=== PATIENT | female | born 1930 | race Caucasian/White ===

== ENCOUNTER 2016-04-18 11:51 | Inpatient (IN) | payer MEDICARE, BC ==
--- NOTE | 2016-04-18 12:49 | ERNOTE ---
Dyspnea - Date Date of Service: 04/18/16 - General Presenting Symptoms: shortness of breath Time Seen by Provider: 04/18/16 12:49 Source: family - Immun/Allergies/Home Medications Immunizations: IMMUNIZATION HX Immunizations Up to Date Yes History of Influenza Vaccine Yes Hx Pneumococcal Vaccination Yes Allergies/Adverse Reactions: Allergies Sulfa (Sulfonamide Antibiotics) Allergy (Verified 04/18/16 12:42) Home Medications: HOME MEDICATIONS Acetaminophen [Tylenol] 650 mg PO Q6H PRN 03/04/16 [Last Taken Unknown] Brimonidine Tartrate/Timolol [Combigan 0.2%-0.5% Eye Drops] 1 drop OP BID [Last Taken 03/04/16 06:00] Calcium Carbonate [Tums] 1,000 mg PO PRN PRN 03/04/16 [Last Taken Unknown] Citalopram Hydrobromide [Citalopram HBr] 20 mg PO DAILY 03/04/16 [Last Taken 06:00] Donepezil HCl [Aricept] 10 mg PO HS 03/04/16 [Last Taken 03/03/16] Eucalyptus Oil/Menthol/Camphor [Vicks Vaporub Ointment] 1 appl TP TID PRN [Last Taken Unknown] Furosemide [Lasix] 20 mg PO DAILY 03/04/16 [Last Taken 03/04/16 06:00] Glucosamine/D3/Boswellia Katie [Osteo Bi-Flex Caplet] 1 each PO DAILY 03/04/16 [ Last Taken 03/04/16 06:00] Levetiracetam 250 mg PO BID 03/04/16 [Last Taken 03/04/16 06:00] Lidocaine [Lidoderm 5%] 1 patch TP DAILY 03/04/16 [Last Taken 03/04/16 08:00] Lisinopril [Zestril] 20 mg PO DAILY 03/04/16 [Last Taken 03/04/16 06:00] Menthol [Biofreeze] 1 appl TP QID PRN 03/04/16 [Last Taken Unknown] Multivitamin [One Daily Essential] 1 each PO DAILY 03/04/16 [Last Taken 06:00] Neomycin Sauer/Bacitrac Zn/Poly [Triple Antibiotic Ointment] 1 each TP TID PRN [Last Taken Unknown] Phenol [Chloraseptic] 1 spray MM Q2H PRN 03/04/16 [Last Taken Unknown] diphenhydrAMINE HCL/ZINC ACET [Benadryl Cream] 1 appl TP QID PRN 03/04/16 [Last Taken Unknown] - History of Present Illness Narrative: pt was seeing a neurologist today and was noted to have a productive cough and looked "florian". Sent to the ed for further eval. Date (Duration): 04/17/16 - Pt was "fine" per family that played cards yest with her. Severity: moderate Treatment [employer]: by patient Initiating event: Reports: upper resp illness Modifying Factors (Worsens): Reports: activity, coughing Associated Symptoms-Dyspnea: Reports: cough. Denies: fever/chills, sweating, chest pain/discomfort, palpitations, lightheadedness Review of Systems - Narrative Narrative: pt has Alzheimers and is unable to give adequate hx - Review of Systems EYE: Present: no symptoms reported ENT: Present: no symptoms reported Respiratory: Present: cough. Absent: shortness of breath Cardiology: Present: no symptoms reported Gastrointestinal/Abdominal: Present: no symptoms reported Genitourinary: Present: no symptoms reported Musculoskeletal: Present: no symptoms reported Neurological: Present: no symptoms reported Endocrine: Present: no symptoms reported Hematologic/Lymphatic: Present: no symptoms reported - Patient's Past Medical History Patient History - Medical: Dementia, Depression, Osteoarthritis Patient History - Cardiac/Respiratory: CHF, Hypertension, Hyperlipidemia Patient History - Cancer: No Hx of Cancer Patient History - Surgical Procedures: Cholecystectomy LMP (females 10-50): Menopausal - Social History Living Situations: assisted living Does anyone smoke in the home?: No Smoking Status: Former smoker Smoking Stop Date: 04/18/96 Alcohol Use: none Drug Use: none Physical Exam - Physical Exam General Appearance: Present: alert, moderate distress - respiratory Eye Exam: Normal inspection: bilateral, PERRL: bilateral Ears, Nose, Throat: Present: normal ENT inspection Neck: Present: normal inspection Respiratory: Present: respiratory distress - mild, crackles - bilateral lower lobes, worse in the R, rhonchi Cardiovascular/Chest: Present: irregularly irregular Gastrointestinal/Abdominal: Present: normal bowel sounds Back Exam: Present: normal inspection Extremity Exam: Present: pedal edema - 1-2+ Neurological Exam: Present: alert Skin Exam: Present: normal color ED Progress - Results and Orders Patient's Lab Results:: I have reviewed the patient's lab results. - Vital Signs Patient's Vital Signs:: I have reviewed the patient's vital signs. Vital Signs: Vital Signs 04/18/16 12:34 Temperature 37.9 C H Pulse Rate 93 Respiratory 34 H Rate Blood Pressure 107/53 O2 Sat by Pulse 86 L Oximetry - EKG EKG: atrial fibrillation, other - mild RVR at 101bpm - X-Ray X-Ray #1 X-Ray: RLL consolidation - Progress/Reassessment Chief Complaint: Dyspnea Progress:: Improved Plan - Plan Plan: will admit to Dr. Paulino at 2:35 PM; will add zithromax Departure Clinical Impression: Pneumonia Qualifiers: Pneumonia type: due to unspecified organism Laterality: right Lung location: lower lobe of lung Qualified Code(s): J18.1 - Lobar pneumonia, unspecified organism - Departure Disposition: [facility] Condition: Stable Referrals: Nettie Spencer MD [Primary Care Provider] -
[2016-04-18 13:11] LABS: Hemoglobin 14.6 gm/dL (12.5-16.0); Mean Cell Volume 96.6 fl (78-100); Mean Corpuscular Hemoglobin 31.3 pg (27-31); Mean Corpuscular Hgb Conc 32.4 g/dl (32-36); Mean Platelet Volume 10.1 fl (6.0-9.5); Neutrophil # 11.9 K/mm3 (1.3-6.0); Neutrophil % 88.9 % (42-75.0); Platelet Count 195 K/mm3 (150-450); Red Blood Count 4.66 M/mm3 (4.2-5.4); Red Cell Distribution Width 13.2 % (11.5-14.0); White Blood Count 13.4 K/mm3 (4.0-10.5)
[2016-04-18 13:29] LABS: Albumin * 3.4 gm/dl (3.4-5.0); Anion Gap 12.1 mmol/L (6.8-13.8); BUN/Creatinine Ratio 11.2 (9.0-21.6); Bilirubin, Total 0.9 mg/dL (0.0-1.1); Ca. Corrected For Albumin 9.4 mg/dL (8.4-10.2); Calcium * 9.2 mg/dL (7.9-10.9); Carbon Dioxide 30.3 mmol/L (24-32.6); Potassium 3.4 mmol/L (3.4-4.6); Total Protein 7.1 gm/dL (6.2-8.2)
[2016-04-18] MEDS ORDERED: AZITHROMYCIN 500 MG in DEXTROSE 5 % IN WATER 250 ML IV ONE ×2 (14:45)
[2016-04-18] MEDS ORDERED: ACETAMINOPHEN 325 MG TABLET PO PRN (15:24)
--- NOTE | 2016-04-18 15:58 | HP ---
Chief Complaint - Chief Complaint Date of Service: 04/18/16 Time of Service: 15:32 Chief Complaint: Cough, Dyspnea History of Present Illness: 85 years old female pleasantly confused at her baseline per family, she is adm through the ER from her Neurologist office. PMH hypertension, CHF, A-fib, hyperlipidemia, dementia, depression and compression fracture. per family while at her neurologist appt today he notices pt had a cough, wheezing and dyspnea. He requested family to take pt to the ER. In ER CXR: Right lower lobe pneumonia and febrile. WBC 13.4 Bun/cre 12/1.07 within baseline. Daughter (POA) stated pt was praying to , son second POA confirm and stated they wishes for pt to be DNR. - Narrative Narrative: Information obtained from previous records and family. - Patient's Past Medical History Patient History - Medical: Dementia, Depression, Osteoarthritis, Renal Failure, Seizures Patient History - Cardiac/Respiratory: Atrial Fibrillation, CHF, Hypertension, Hyperlipidemia Patient History - Cancer: No Hx of Cancer Patient History - Surgical Procedures: Cholecystectomy, Other - Rotator cuff repair LMP (females 10-50): Menopausal - Family History Sister Family History - Cardiac/Respiratory: Hypertension - Social History Living Situations: assisted living - [place] Does anyone smoke in the home?: No Smoking Status: Former smoker Smoking Stop Date: 04/18/96 Alcohol Use: none Drug Use: none Review Of Systems (GEN) - Review of Systems Generalized/Overall Review: Present: Fever Respiratory: Present: Cough, Shortness of Breath, Wheezing Cardiac: Present: No Symptoms Reported Abdominal: Present: No Symptoms Reported Genitourinary: Present: No Symptoms Reported Musculoskeletal: Present: Joint Pain Neurological: Present: No Symptoms Reported Skin: Present: No Symptoms Reported Allergies/Adverse Reactions: Allergies Allergy/AdvReac Type Severity Reaction Status Date / Time Sulfa (Sulfonamide Allergy Verified 04/18/16 16:07 Antibiotics) Home Medications: HOME MEDICATIONS Acetaminophen [Tylenol] 650 mg PO Q6H PRN 03/04/16 [Last Taken Unknown] Brimonidine Tartrate/Timolol [Combigan 0.2%-0.5% Eye Drops] 1 drop OP BID [Last Taken 03/04/16 06:00] Calcium Carbonate [Tums] 1,000 mg PO PRN PRN 03/04/16 [Last Taken Unknown] Citalopram Hydrobromide [Citalopram HBr] 20 mg PO DAILY 03/04/16 [Last Taken 06:00] Donepezil HCl [Aricept] 10 mg PO HS 03/04/16 [Last Taken 03/03/16] Eucalyptus Oil/Menthol/Camphor [Vicks Vaporub Ointment] 1 appl TP TID PRN [Last Taken Unknown] Furosemide [Lasix] 20 mg PO DAILY 03/04/16 [Last Taken 03/04/16 06:00] Glucosamine/D3/Boswellia Katie [Osteo Bi-Flex Caplet] 1 each PO DAILY 03/04/16 [ Last Taken 03/04/16 06:00] Levetiracetam 250 mg PO BID 03/04/16 [Last Taken 03/04/16 06:00] Lidocaine [Lidoderm 5%] 1 patch TP DAILY 03/04/16 [Last Taken 03/04/16 08:00] Lisinopril [Zestril] 20 mg PO DAILY 03/04/16 [Last Taken 03/04/16 06:00] Menthol [Biofreeze] 1 appl TP QID PRN 03/04/16 [Last Taken Unknown] Multivitamin [One Daily Essential] 1 each PO DAILY 03/04/16 [Last Taken 06:00] Neomycin Sauer/Bacitrac Zn/Poly [Triple Antibiotic Ointment] 1 each TP TID PRN [Last Taken Unknown] Phenol [Chloraseptic] 1 spray MM Q2H PRN 03/04/16 [Last Taken Unknown] diphenhydrAMINE HCL/ZINC ACET [Benadryl Cream] 1 appl TP QID PRN 03/04/16 [Last Taken Unknown] Exam - Exam Vital Signs: Vital Signs - Last Taken Temp 38.1 C H 04/18/16 15:06 Pulse 88 04/18/16 15:06 Resp 34 H 04/18/16 15:06 BP 174/78 04/18/16 15:06 Pulse Ox 93 04/18/16 15:06 Constitutional: Present: Cooperative, Elderly ENT Exam: Present: moist mucous membranes Eye Exam: bilateral eye: PERRL Breasts: Present: Exam deferred Respiratory: Present: decreased breath sounds, crackles, rhonchi Cardiovascular/Chest: Present: normal peripheral pulses, no chest tenderness, irregularly irregular, other - BLE edema Peripheral Pulses: dorsalis-pedis (R): 2+, dorsalis-pedis (L): 2+ Abdomen: Present: Normal bowel sounds, soft, nontender, nondistended /Rectal: Present: Exam deferred Extremity: Present: normal inspection, lower extremity edema, pedal edema Skin Exam: Present: normal color, warm/dry, no cyanosis Neurologic: Present: disoriented x 3 Eye contact: Present: normal speech Thoughts: Present: no apparent hallucination Diagnostic Studies: Laboratory Results WBC 13.4 K/mm3 (4.0-10.5) H 04/18/16 13:00 RBC 4.66 M/mm3 (4.2-5.4) 04/18/16 13:00 Hgb 14.6 gm/dL (12.5-16.0) 04/18/16 13:00 Hct 45.0 % (37.0-47.0) 04/18/16 13:00 MCV 96.6 fl (78-100) 04/18/16 13:00 MCH 31.3 pg (27-31) H 04/18/16 13:00 MCHC 32.4 g/dl (32-36) 04/18/16 13:00 RDW 13.2 % (11.5-14.0) 04/18/16 13:00 Plt Count 195 K/mm3 (150-450) 04/18/16 13:00 MPV 10.1 fl (6.0-9.5) H 04/18/16 13:00 Immature Gran % (Auto) 0.30 % (0.001-0.429) 04/18/16 13:00 Immature Gran # (Auto) 0.04 K/mm3 (0.000-0.0310) H 04/18/16 13:00 Neutrophils % 88.9 % (42-75.0) H 04/18/16 13:00 Lymphocytes % 5.4 % (20-51) L 04/18/16 13:00 Monocytes % 5.0 % (0.0-9) 04/18/16 13:00 Eosinophils % 0.1 % (0.0-3.0) 04/18/16 13:00 Basophils % 0.3 % (0.0-1.0) 04/18/16 13:00 Nucleated RBC % 0.0 k/mm3 (0-1) 04/18/16 13:00 Neutrophils # 11.9 K/mm3 (1.3-6.0) H 04/18/16 13:00 Lymphocytes # 0.7 k/mm3 (1.5-3.5) L 04/18/16 13:00 Monocytes # 0.7 k/mm3 (0.0-1.0) 04/18/16 13:00 Eosinophils # 0.0 k/mm3 (0.0-0.7) 04/18/16 13:00 Absolute Basophils 0.0 k/mm3 (0.0-0.1) 04/18/16 13:00 Sodium 143 mmol/L (132-142) H 04/18/16 13:00 Plasma Sodium 144 mmol/L (130-142) H 04/18/16 13:00 Potassium 3.4 mmol/L (3.4-4.6) 04/18/16 13:00 Chloride 104 mmol/L (97-106) 04/18/16 13:00 Carbon Dioxide 30.3 mmol/L (24-32.6) 04/18/16 13:00 Anion Gap 12.1 mmol/L (6.8-13.8) 04/18/16 13:00 BUN 12 mg/dL (3-23) 04/18/16 13:00 Creatinine 1.07 mg/dL (0.4-1.4) 04/18/16 13:00 Est GFR (Non-Af Amer) 52 mL/min (60-130) L 04/18/16 13:00 BUN/Creatinine Ratio 11.2 (9.0-21.6) 04/18/16 13:00 Random Glucose 137 mg/dL (70-110) H 04/18/16 13:00 Calcium 9.2 mg/dL (7.9-10.9) 04/18/16 13:00 Calcium Adj for Albumin 9.4 mg/dL (8.4-10.2) 04/18/16 13:00 Total Bilirubin 0.9 mg/dL (0.0-1.1) 04/18/16 13:00 AST 24 U/L (0-48) 04/18/16 13:00 ALT 29 U/L (19-67) 04/18/16 13:00 Alkaline Phosphatase 87 U/L (50-170) 04/18/16 13:00 B-Natriuretic Peptide 4621 pg/mL (5-550) H 04/18/16 13:00 Total Protein 7.1 gm/dL (6.2-8.2) 04/18/16 13:00 Albumin 3.4 gm/dl (3.4-5.0) 04/18/16 13:00 04/18/16 CXR: Right Lower lobe pneumonia Assessment/Plan - Narrative Narrative: Pneumonia Pt a resident of [facility].On adm CXR : Right lower lobe pneumonia Continue with Rocephin and Azithromycin daily Sputum culture, blood culture and urinalysis pending. Lactic acid to be obtain if was not done in ER. On adm WBC 13.4 Temp 37.9---->38.1----> continue to monitor Tylenol 650mg Q6 PRN monitor CBC in am Encourage use of I/S and ambulate daily. On adm Spo2 86% on RA---> supplemented oxygen and wean Dementia- currently at baseline per family Supportive care Continue with home dose of medications CHF ? Continue with home dose Lasix BLE pitting edema no JVD BNP 4621 on adm wolf 60.7kg ---->Weight daily and strict I/O Hypertension On adm BP 196/88--->174/78-----> Give Lasix 40mg IV x1 now Resume home dose of medications Monitor vital signs Hypernatremia On adm Na+ 143 continue to monitor Low sodium diet Chronic A-Fib EKG A-fib mild RVR 101 BPM Monitor while on tele Chronic dementia and potential for increased risk to falls not a candidate for anticoag Seizure Continue with home dose Keppra Safety measures pad side rails. VTE ppx Haparin SQ Code Status: DNR - Assessment/Plan (1) Pneumonia Problem: Acute Qualifiers: Pneumonia type: due to unspecified organism Laterality: right Lung location: lower lobe of lung Qualified Code(s): J18.1 - Lobar pneumonia, unspecified organism (2) Hypernatremia Problem: Chronic (3) Leukocytosis, unspecified Problem: Acute (4) Congestive heart failure (CHF) Problem: Chronic Qualifiers: Congestive heart failure type: unspecified congestive heart failure type (5) Dementia Problem: Chronic (6) Hypertension Problem: Chronic Qualifiers: Hypertension type: essential hypertension Qualified Code(s): I10 - Essential (primary) hypertension (7) A-fib Problem: Chronic Qualifiers: Atrial fibrillation type: unspecified Qualified Code(s): I48.91 - Unspecified atrial fibrillation (8) Seizure Problem: Chronic
[2016-04-18] MEDS: HEPARIN SODIUM,PORCINE 5,000 UNITS/ML VIAL SC SCH (15:59)
[2016-04-18] MEDS ORDERED: FUROSEMIDE 10 MG/ML VIAL IV ONE (16:38)
[2016-04-18] MEDS ORDERED: POTASSIUM CHLORIDE 20 MEQ TABLET.SA PO ONE (16:39)
[2016-04-18] MEDS ORDERED: NON-FORMULARY 1 DOSE DOSE (Menthol [Biofreeze] 1 APPL) TP PRN (16:39)
[2016-04-18] MEDS ORDERED: CALCIUM CARBONATE 500 MG TAB.CHEW PO PRN (16:39)
[2016-04-18] MEDS: DONEPEZIL HCL 10 MG TABLET PO SCH (22:21)
[2016-04-18] MEDS: levETIRAcetam 500 MG TABLET PO SCH (22:21)
[2016-04-18] MEDS: TIMOLOL MALEATE/DORZOLAM HCL 100 DROP BTL OP SCH (22:40)
[2016-04-18] MEDS: REMOVE PATCH 1 PATCH PATCH TP SCH (22:41)
[2016-04-18 23:06] LABS: Urine Bilirubin Negative (NEGATIVE); Urine Ketone Negative (NEGATIVE); Urine Nitrite Negative (NEGATIVE); Urine Protein Negative (NEGATIVE); Urine Urobilinogen Normal (NORMAL)
[2016-04-18 23:11] LABS: Urine Appearance Turbid; Urine Bacteria 1+; Urine Blood 250 /ul (NEGATIVE); Urine Color Yellow; Urine WBC >50 /hpf (0-5)
[2016-04-18 23:12] LABS: Urine Hyaline Cast 0-5 /LPF; Urine Renal Epithelial Cell Few - 1+ /hpf
[2016-04-19] MEDS: HEPARIN SODIUM,PORCINE 5,000 UNITS/ML VIAL SC SCH ×2 (03:37→17:08)
[2016-04-19 05:39] LABS: Hemoglobin 12.5 gm/dL (12.5-16.0); Mean Cell Volume 96.8 fl (78-100); Mean Corpuscular Hgb Conc 32.1 g/dl (32-36); Mean Platelet Volume 10.6 fl (6.0-9.5); Neutrophil # 13.5 K/mm3 (1.3-6.0); Platelet Count 167 K/mm3 (150-450); Red Blood Count 4.03 M/mm3 (4.2-5.4); Red Cell Distribution Width 13.2 % (11.5-14.0); White Blood Count 16.4 K/mm3 (4.0-10.5)
[2016-04-19 06:10] LABS: Anion Gap 11.1 mmol/L (6.8-13.8); BUN/Creatinine Ratio 13.6 (9.0-21.6); Calcium * 8.8 mg/dL (7.9-10.9); Carbon Dioxide 30.2 mmol/L (24-32.6); Estimated Creat Clear 21.2; Potassium 3.3 mmol/L (3.4-4.6)
[2016-04-19] MEDS ORDERED: POTASSIUM CHLORIDE 20 MEQ TABLET.SA PO ONE (07:30)
--- NOTE | 2016-04-19 08:39 | PN ---
Subjective - Date and Time Seen Date: 04/19/16 Time: 08:13 Subjective Narrative: patient seen today no acute distress sitting up in chair. pt stated she have no appetite and is sad that her . She report mild SOB with exertion, productive cough with small amount of sputum. Objective - Review of Systems Generalized/Overall Review: Reports: No Symptoms Reported Respiratory: Reports: Cough, Shortness of Breath Cardiac: Reports: No Symptoms Reported Abdominal: Reports: No Symptoms Reported Genitourinary Symptoms: Reports: No Symptoms Reported Musculoskeletal Complaints: Reports: No Symptoms Reported Neurological: Reports: No Symptoms Reported Skin: Reports: No Symptoms Reported Endocrine: Reports: No Symptoms Reported - Vitals Vitals: Last Vital Signs Temp 36.7 C 04/19/16 06:44 Pulse 78 04/19/16 06:44 Resp 18 04/19/16 06:44 BP 159/72 04/19/16 06:44 Pulse Ox 94 04/19/16 06:44 - Abnormal Lab Findings Abnormal Lab Findings: Abnormal Lab Results 04/18/16 04/19/16 04/19/16 Range/Units 22:45 05:14 05:14 WBC 16.4 H D (4.0-10.5) K/mm3 RBC 4.03 L (4.2-5.4) M/mm3 MPV 10.6 H (6.0-9.5) fl Immature Gran % (Auto) 0.50 H (0.001-0.429) % Immature Gran # (Auto) 0.08 H (0.000-0.0310) K/mm3 Neutrophils % 82.0 H (42-75.0) % Lymphocytes % 10.6 L (20-51) % Neutrophils # 13.5 H (1.3-6.0) K/mm3 Monocytes # 1.1 H (0.0-1.0) k/mm3 Sodium 144 H (132-142) mmol/L Plasma Sodium 144 H (130-142) mmol/L Potassium 3.3 L (3.4-4.6) mmol/L Est GFR (Non-Af Amer) 54 L (60-130) mL/min Random Glucose 116 H (70-110) mg/dL B-Natriuretic Peptide 98699 H (5-550) pg/mL Urine Blood 250 H (NEGATIVE) /ul Ur Leukocyte Esterase 500 H (NEGATIVE) /ul Urine RBC 5-10 H (0-5) /hpf Urine WBC >50 H (0-5) /hpf Ur Renal Epithelial Cell Few - 1+ H (NONE) /hpf Urine Bacteria 1+ H (NONE) Hyaline Casts 0-5 H (NONE) /LPF - EKG/Xray Findings EKG: atrial fibrillation - Exam Constitutional: Present: Cooperative, Elderly ENT Exam: Present: moist mucous membranes Neck: Present: full range of motion Breasts: Present: Exam deferred Respiratory: Present: decreased breath sounds, rhonchi, wheezing Cardiovascular/Chest: Present: no JVD, irregularly irregular, other - BLE pitting edema Abdomen: Present: Normal bowel sounds, soft, nontender, nondistended, no rebound tenderness /Rectal: Present: Exam deferred Extremity: Present: normal inspection, lower extremity edema, slow capillary refill Skin Exam: Present: normal color, warm/dry, no cyanosis Neurologic: Present: disoriented x 3 Appearance: Present: impaired insight Eye contact: Present: cooperative Thoughts: Present: no apparent hallucination Assessment/Plan Plan Narrative: Pneumonia Pt a resident of [facility].On adm CXR : Right lower lobe pneumonia Continue with Rocephin and Azithromycin daily Sputum culture pending Lactic acid -WNL On adm WBC 13.4 --->16.4 gradual spike 04/18/16 On adm Temp 37.9---->38.1----> pt has been afebril since 15:34 yesterday Tylenol 650mg Q6 PRN monitor CBC in am Encourage use of I/S and ambulate daily, due to dementia pt is not able to follow instruction in using I/S On adm Spo2 86% on RA---> supplemented oxygen and wean----> today Spo2 94% room air. Dementia- currently at baseline per family Supportive care Continue with home dose of medications CHF ? Continue with home dose Lasix BLE pitting edema no JVD BNP 4621---->83924----> on adm weight 60.7kg ----> 60.7 Weight daily and strict I/O 2D echo pending Low sodium diet nutritional supplement with meals. Hypertension On adm BP 196/88--->174/78-----> improved after Lasix was given. Today BP 159/72 Switch Oral Lasix 20mg daily to Lasix 40mg Resume home dose of medications Monitor vital signs Hypernatremia- On adm Na+ 143---->144 continue to monitor Low sodium diet Chronic A-Fib On adm EKG A-fib mild RVR 101 BPM Monitor while on tele----> pt remain Afib rate control Chronic dementia and potential for increased risk to falls not a candidate for anticoag Seizure Continue with home dose Keppra Safety measures pad side rails. Hypokalemia- supplemented VTE ppx Haparin SQ Code Status: DNR - Problems/Diagnosis (1) Pneumonia Problem: Acute Qualifiers: Pneumonia type: due to unspecified organism Laterality: right Lung location: lower lobe of lung Qualified Code(s): J18.1 - Lobar pneumonia, unspecified organism (2) Hypernatremia Problem: Chronic (3) Leukocytosis, unspecified Problem: Acute (4) Congestive heart failure (CHF) Problem: Chronic Qualifiers: Congestive heart failure type: unspecified congestive heart failure type (5) Dementia Problem: Chronic (6) Hypertension Problem: Chronic Qualifiers: Hypertension type: essential hypertension Qualified Code(s): I10 - Essential (primary) hypertension (7) A-fib Problem: Chronic Qualifiers: Atrial fibrillation type: unspecified Qualified Code(s): I48.91 - Unspecified atrial fibrillation (8) Seizure Problem: Chronic
[2016-04-19] MEDS ORDERED: FUROSEMIDE 20 MG TABLET PO SCH (09:00)
[2016-04-19] MEDS: LIDOCAINE 1 PATCH ADH..PATCH TP SCH (09:09)
[2016-04-19] MEDS: FUROSEMIDE 10 MG/ML VIAL IV SCH (09:10)
[2016-04-19] MEDS: POTASSIUM CHLORIDE 20 MEQ TABLET.SA PO SCH (09:11)
[2016-04-19] MEDS: CITALOPRAM HYDROBROMIDE 20 MG TABLET PO SCH (09:11)
[2016-04-19] MEDS: TIMOLOL MALEATE/DORZOLAM HCL 100 DROP BTL OP SCH ×2 (09:12→21:52)
[2016-04-19] MEDS: MULTIVITAMINS 1 CAP CAPSULE PO SCH (09:12)
[2016-04-19] MEDS: LISINOPRIL 20 MG TABLET PO SCH (09:12)
[2016-04-19] MEDS: levETIRAcetam 500 MG TABLET PO SCH ×2 (09:13→21:56)
[2016-04-19] MEDS: NON-FORMULARY 1 DOSE DOSE (Glucosamine/D3/Boswellia Serra [Osteo Bi-Flex Caplet] 1 EACH) PO SCH (09:14)
[2016-04-19] MEDS ORDERED: AZITHROMYCIN 500 MG in DEXTROSE 5 % IN WATER 250 ML IV SCH ×2 (14:45)
[2016-04-19] MEDS: ALPRAZolam 0.5 MG TABLET PO PRN ×2 (15:38→21:56)
[2016-04-19] MEDS: DONEPEZIL HCL 10 MG TABLET PO SCH (21:51)
[2016-04-19] MEDS: REMOVE PATCH 1 PATCH PATCH TP SCH (21:57)
[2016-04-20] MEDS: HEPARIN SODIUM,PORCINE 5,000 UNITS/ML VIAL SC SCH ×2 (02:43→15:07)
[2016-04-20 06:27] LABS: Hematocrit 39.8 % (37.0-47.0); Hemoglobin 12.4 gm/dL (12.5-16.0); Mean Cell Volume 99.3 fl (78-100); Mean Corpuscular Hemoglobin 30.9 pg (27-31); Mean Corpuscular Hgb Conc 31.2 g/dl (32-36); Mean Platelet Volume 11.3 fl (6.0-9.5); Neutrophil # 11.4 K/mm3 (1.3-6.0); Neutrophil % 82.1 % (42-75.0); Platelet Count 168 K/mm3 (150-450); Red Blood Count 4.01 M/mm3 (4.2-5.4); Red Cell Distribution Width 13.2 % (11.5-14.0); White Blood Count 13.8 K/mm3 (4.0-10.5)
[2016-04-20 07:00] LABS: BUN/Creatinine Ratio 15.8 (9.0-21.6); Carbon Dioxide 35.1 mmol/L (24-32.6); Potassium 4.1 mmol/L (3.4-4.6)
[2016-04-20] MEDS: LISINOPRIL 20 MG TABLET PO SCH (08:31)
[2016-04-20] MEDS: LIDOCAINE 1 PATCH ADH..PATCH TP SCH (08:31)
[2016-04-20] MEDS: MULTIVITAMINS 1 CAP CAPSULE PO SCH (08:31)
[2016-04-20] MEDS: TIMOLOL MALEATE/DORZOLAM HCL 100 DROP BTL OP SCH ×2 (08:31→20:30)
[2016-04-20] MEDS: POTASSIUM CHLORIDE 20 MEQ TABLET.SA PO SCH (08:31)
[2016-04-20] MEDS: CITALOPRAM HYDROBROMIDE 20 MG TABLET PO SCH (08:32)
[2016-04-20] MEDS: NON-FORMULARY 1 DOSE DOSE (Glucosamine/D3/Boswellia Serra [Osteo Bi-Flex Caplet] 1 EACH) PO SCH (08:32)
[2016-04-20] MEDS: FUROSEMIDE 10 MG/ML VIAL IV SCH (08:33)
[2016-04-20] MEDS: levETIRAcetam 500 MG TABLET PO SCH ×2 (08:57→20:30)
[2016-04-20] MEDS ORDERED: NORMAL SALINE 500 ML IV ONE (15:27)
[2016-04-20] MEDS: DONEPEZIL HCL 10 MG TABLET PO SCH (20:31)
[2016-04-20] MEDS: REMOVE PATCH 1 PATCH PATCH TP SCH (20:31)
--- NOTE | 2016-04-20 23:47 | PN ---
Subjective - Date and Time Seen Date: 04/21/16 Time: 10:30 Subjective Narrative: Reports no concerns. Had bites with breakfast per nursing. Denies shortness of breath, fever, chills. Objective - Vitals Vitals: Last Vital Signs Temp 36.6 C 04/20/16 23:38 Pulse 80 04/20/16 23:38 Resp 16 04/20/16 23:38 BP 132/72 04/20/16 23:38 Pulse Ox 87 L 04/20/16 23:38 - Abnormal Lab Findings Abnormal Lab Findings: Abnormal Lab Results 04/20/16 04/20/16 Range/Units 05:30 05:30 WBC 13.8 H (4.0-10.5) K/mm3 RBC 4.01 L (4.2-5.4) M/mm3 Hgb 12.4 L (12.5-16.0) gm/dL MCHC 31.2 L (32-36) g/dl MPV 11.3 H (6.0-9.5) fl Immature Gran # (Auto) 0.04 H (0.000-0.0310) K/mm3 Neutrophils % 82.1 H (42-75.0) % Lymphocytes % 11.2 L (20-51) % Neutrophils # 11.4 H (1.3-6.0) K/mm3 Sodium 144 H (132-142) mmol/L Plasma Sodium 144 H (130-142) mmol/L Carbon Dioxide 35.1 H (24-32.6) mmol/L Est GFR (Non-Af Amer) 59 L (60-130) mL/min B-Natriuretic Peptide 76028 H (5-550) pg/mL - Exam Constitutional: Present: Alert, Oriented x3, Cooperative Respiratory: Present: decreased breath sounds - right base Cardiovascular/Chest: Present: regular rate, rhythm, no edema Abdomen: Present: Normal bowel sounds, soft, nontender, nondistended Skin Exam: Present: normal color, warm/dry, no cyanosis Appearance: Present: appropriate appearance, appropriate insight Assessment/Plan - Problems/Diagnosis (1) Pneumonia Problem: Acute Qualifiers: Pneumonia type: due to unspecified organism Laterality: right Lung location: lower lobe of lung Qualified Code(s): J18.1 - Lobar pneumonia, unspecified organism Narrative: Encouraged incentive spirometer and cornet. Continue antibiotics. Will add ensure between meals for additional nutrition. Anticipate discharge in 2-3 days.
[2016-04-21] MEDS: HEPARIN SODIUM,PORCINE 5,000 UNITS/ML VIAL SC SCH ×2 (02:31→15:00)
[2016-04-21 06:18] LABS: Anion Gap 11.3 mmol/L (6.8-13.8); BUN/Creatinine Ratio 19.4 (9.0-21.6); Calcium * 8.9 mg/dL (7.9-10.9); Carbon Dioxide 30.7 mmol/L (24-32.6); Estimated Creat Clear 23.5
[2016-04-21] MEDS: CITALOPRAM HYDROBROMIDE 20 MG TABLET PO SCH (09:24)
[2016-04-21] MEDS: LISINOPRIL 20 MG TABLET PO SCH (09:25)
[2016-04-21] MEDS: POTASSIUM CHLORIDE 20 MEQ TABLET.SA PO SCH (09:25)
[2016-04-21] MEDS: MULTIVITAMINS 1 CAP CAPSULE PO SCH (09:25)
[2016-04-21] MEDS: levETIRAcetam 500 MG TABLET PO SCH ×2 (09:25→21:09)
[2016-04-21] MEDS: NON-FORMULARY 1 DOSE DOSE (Glucosamine/D3/Boswellia Serra [Osteo Bi-Flex Caplet] 1 EACH) PO SCH (09:25)
[2016-04-21] MEDS: TIMOLOL MALEATE/DORZOLAM HCL 100 DROP BTL OP SCH ×2 (09:26→21:09)
[2016-04-21] MEDS: LIDOCAINE 1 PATCH ADH..PATCH TP SCH (09:28)
[2016-04-21 13:39] LABS: Hematocrit 40.3 % (37.0-47.0); Hemoglobin 12.4 gm/dL (12.5-16.0); Mean Cell Volume 100.2 fl (78-100); Mean Corpuscular Hemoglobin 30.8 pg (27-31); Mean Corpuscular Hgb Conc 30.8 g/dl (32-36); Mean Platelet Volume 11.6 fl (6.0-9.5); Neutrophil # 5.9 K/mm3 (1.3-6.0); Platelet Count 175 K/mm3 (150-450); Red Blood Count 4.02 M/mm3 (4.2-5.4); Red Cell Distribution Width 13.3 % (11.5-14.0); White Blood Count 7.7 K/mm3 (4.0-10.5)
[2016-04-21] MEDS: REMOVE PATCH 1 PATCH PATCH TP SCH (21:10)
[2016-04-21] MEDS: DONEPEZIL HCL 10 MG TABLET PO SCH (21:10)
--- NOTE | 2016-04-21 23:42 | PN ---
Subjective - Date and Time Seen Date: 04/21/16 Time: 11:25 Subjective Narrative: Tonya reports left rib pain with movement, cough. Otherwise she says she feels fine. No concerns from nursing. Objective - Vitals Vitals: Last Vital Signs Temp 36.6 C 04/21/16 22:21 Pulse 93 04/21/16 22:21 Resp 16 04/21/16 22:21 BP 162/74 04/21/16 23:20 Pulse Ox 95 04/21/16 22:21 - Abnormal Lab Findings Abnormal Lab Findings: Abnormal Lab Results 04/21/16 04/21/16 Range/Units 05:45 05:45 RBC 4.02 L (4.2-5.4) M/mm3 Hgb 12.4 L (12.5-16.0) gm/dL MCV 100.2 H (78-100) fl MCHC 30.8 L (32-36) g/dl MPV 11.6 H (6.0-9.5) fl Neutrophils % 76.0 H (42-75.0) % Lymphocytes % 14.5 L (20-51) % Lymphocytes # 1.1 L (1.5-3.5) k/mm3 Sodium 144 H (132-142) mmol/L Plasma Sodium 144 H (130-142) mmol/L - Exam Constitutional: Present: Alert, Oriented x3, Cooperative ENT Exam: Present: hard of hearing Respiratory: Present: decreased breath sounds - Right base Cardiovascular/Chest: Present: regular rate, rhythm, systolic murmur - 2+, other - tender left 4th/5th ribs on lateral wall Abdomen: Present: Normal bowel sounds, soft, nontender, nondistended Extremity: Present: no pedal edema, normal capillary refill Skin Exam: Present: normal color, warm/dry, no cyanosis Assessment/Plan - Problems/Diagnosis (1) Pneumonia Problem: Acute Qualifiers: Pneumonia type: due to unspecified organism Laterality: right Lung location: lower lobe of lung Qualified Code(s): J18.1 - Lobar pneumonia, unspecified organism Narrative: Clinically doing well. No hypoxia. Watching closely as patient has dementia history. Will repeat chest xray and rib xray today due to rib pain to evaluate for potential fracture due to coughing with osteoporosis. If she continues to do well clinically from the pneumonia may be able to be discharged tomorrow.
[2016-04-22] MEDS: HEPARIN SODIUM,PORCINE 5,000 UNITS/ML VIAL SC SCH (02:52)
[2016-04-22 06:35] LABS: Anion Gap 10.6 mmol/L (6.8-13.8); BUN/Creatinine Ratio 21.7 (9.0-21.6); Carbon Dioxide 32.7 mmol/L (24-32.6); Estimated Creat Clear 26.3; Potassium 4.3 mmol/L (3.4-4.6)
[2016-04-22] MEDS: TIMOLOL MALEATE/DORZOLAM HCL 100 DROP BTL OP SCH (08:34)
[2016-04-22] MEDS: MULTIVITAMINS 1 CAP CAPSULE PO SCH (08:34)
[2016-04-22] MEDS: levETIRAcetam 500 MG TABLET PO SCH (08:34)
[2016-04-22] MEDS: NON-FORMULARY 1 DOSE DOSE (Glucosamine/D3/Boswellia Serra [Osteo Bi-Flex Caplet] 1 EACH) PO SCH (08:35)
[2016-04-22] MEDS: CITALOPRAM HYDROBROMIDE 20 MG TABLET PO SCH (08:35)
[2016-04-22] MEDS: POTASSIUM CHLORIDE 20 MEQ TABLET.SA PO SCH (08:35)
[2016-04-22] MEDS: LISINOPRIL 20 MG TABLET PO SCH (08:35)
[2016-04-22] MEDS: LIDOCAINE 1 PATCH ADH..PATCH TP SCH (08:50)
[2016-04-22 10:17] VITALS: BP 184/83
--- NOTE | 2016-04-22 10:20 | DS ---
(1) Pneumonia Diagnosis(s): Right lower lobe health care associated pneumonia with residence in dementia unit at [facility]. Treated with rocephin and azithromycin. She clinically did well without hypoxia or significant dyspnea. She did have left rib pain. An xray was done which did not show a fracture, suspect costochondritis. Has complete azithromycin, will complete course of treatment with cefdinir 300mg PO BID x 10 days. Problem: Acute Qualifiers: Pneumonia type: due to unspecified organism Laterality: right Lung location: lower lobe of lung Qualified Code(s): J18.1 - Lobar pneumonia, unspecified organism Procedures Performed: none Discharge Disposition: [facility] Disposition: [facility] Condition: Stable Discharge Activity: Activity as tolerated Discharge Diet: General/regular food Referrals: Nettie Spencer MD [Primary Care Provider] - One Week Problem Oriented Discharge Instructions to Patient/Family: Community-Acquired Pneumonia, Adult, [id number] Additional Patient Instructions (free text): Return to dementia unit at [facility]. Prescriptions (Any new or edited meds): Cefdinir [Omnicef] 300 mg PO Q12H #20 cap Complete Home Medications List: Complete Home Medication List: Acetaminophen [Tylenol] 650 mg PO Q6H PRN 03/04/16 Brimonidine Tartrate/Timolol [Combigan 0.2%-0.5% Eye Drops] 1 drop OP BID Calcium Carbonate [Tums] 1,000 mg PO PRN PRN 03/04/16 Citalopram Hydrobromide [Citalopram HBr] 20 mg PO DAILY 03/04/16 Donepezil HCl [Aricept] 10 mg PO HS 03/04/16 Eucalyptus Oil/Menthol/Camphor [Vicks Vaporub Ointment] 1 appl TP TID PRN Furosemide [Lasix] 20 mg PO DAILY 03/04/16 Glucosamine/D3/Boswellia Katie [Osteo Bi-Flex Caplet] 1 each PO DAILY 03/04/16 Levetiracetam 250 mg PO BID 03/04/16 Lidocaine [Lidoderm 5%] 1 patch TP DAILY 03/04/16 Lisinopril [Zestril] 20 mg PO DAILY 03/04/16 Menthol [Biofreeze] 1 appl TP QID PRN 03/04/16 Multivitamin [One Daily Essential] 1 each PO DAILY 03/04/16 Neomycin Sauer/Bacitrac Zn/Poly [Triple Antibiotic Ointment] 1 each TP TID PRN Phenol [Chloraseptic] 1 spray MM Q2H PRN 03/04/16 diphenhydrAMINE HCL/ZINC ACET [Benadryl Cream] 1 appl TP QID PRN 03/04/16 Cefdinir [Omnicef] 300 mg PO Q12H #20 cap 04/22/16
--- NOTE | 2016-04-22 12:24 | ECHO ---
This report is available in the EMR
== END 2016-04-22 15:10 | disposition home or self-care (01) | DRG 193 ==
LOC: ER 11:51 → MS 14:34
PROVIDERS: ADMIT Family Medicine; ATTEND Family Medicine
DX: J18.1 Lobar pneumonia, unspecified organism (principal); I50.43 Acute on chronic combined systolic (congestive) and diastolic (congestive) heart failure; E87.0 Hyperosmolality and hypernatremia; M94.0 Chondrocostal junction syndrome [Tietze]; D72.829 Elevated white blood cell count, unspecified; I10 Essential (primary) hypertension; I48.91 Unspecified atrial fibrillation; F03.90 Unspecified dementia, unspecified severity, without behavioral disturbance, psychotic disturbance, mood disturbance, and anxiety; Z87.891 Personal history of nicotine dependence

== ENCOUNTER 2016-11-20 18:50 | Emergency (ER) | payer MEDICARE, BC ==
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
[2016-11-20 20:57] VITALS: BP 100/47
== END 2016-11-20 20:22 ==
LOC: ER 18:50
PROC: 0JQ00ZZ Repair Scalp Subcutaneous Tissue and Fascia, Open Approach (ICD-10-PCS; principal; 2016-11-20)
DX: S01.01XA Laceration without foreign body of scalp, initial encounter (principal); S09.90XA Unspecified injury of head, initial encounter; W18.30XA Fall on same level, unspecified, initial encounter; Z91.81 History of falling; Y93.9 Activity, unspecified; Y92.121 Bathroom in nursing home as the place of occurrence of the external cause

== ENCOUNTER 2018-03-19 14:37 | Observation (INO) | payer BC, MEDICAID, MEDICARE ==
[2018-03-19 15:33] LABS: Mean Cell Volume 96.2 fl (78-100); Mean Corpuscular Hemoglobin 29.5 pg (27-31); Mean Corpuscular Hgb Conc 30.7 g/dl (32-36); Mean Platelet Volume 9.8 fl (8-12.5); Platelet Count 216 K/mm3 (150-450); Red Blood Count 2.34 M/mm3 (4.2-5.4); White Blood Count 6.8 K/mm3 (4.0-10.5)
[2018-03-19 15:34] LABS: Hematocrit 22.5 % (37.0-47.0); Hemoglobin 6.9 gm/dL (12.5-16.0)
[2018-03-19 15:39] LABS: Prothrombin Time (Patient) 12.1 Seconds (9.0-11.0)
[2018-03-19 15:41] LABS: INR 1.21 INR (0.90-1.10); Partial Thrombolplastin Time 25.4 Seconds (24-32)
[2018-03-19 15:43] LABS: Albumin * 2.7 gm/dl (3.4-5.0); Anion Gap 12.2 mmol/L (6.8-13.8); BUN/Creatinine Ratio 23.1 (9.0-21.6); Bilirubin, Total 0.2 mg/dL (0.0-1.1); Ca. Corrected For Albumin 9.1 mg/dL (8.4-10.2); Calcium * 8.4 mg/dL (7.9-10.9); Carbon Dioxide 30.2 mmol/L (24-32.6); Potassium 4.4 mmol/L (3.4-4.6); Total Protein 5.9 gm/dL (6.2-8.2)
[2018-03-19] MEDS ORDERED: NORMAL SALINE 1,000 ML IV ONE ×2 (15:53→16:03)
[2018-03-19] MEDS ORDERED: PANTOPRAZOLE SODIUM 40 MG/100 ML PIGGYBACK IV ONE (15:53)
--- NOTE | 2018-03-19 16:20 | ERNOTE ---
GI Bleeding/Rectal Pain ER Date of Service: 03/19/18 Presenting Symptoms: dark/tarry stools Time Seen by Provider: 03/19/18 14:43 Source: family Exam Limitations: dementia Immunizations: IMMUNIZATION HX Immunizations Up to Date Yes History of Influenza Vaccine Yes Hx Pneumococcal Vaccination Yes Allergies/Adverse Reactions: Allergies Sulfa (Sulfonamide Antibiotics) Allergy (Verified 03/19/18 14:41) RASH tramadol Adverse Reaction (Unknown, Verified 03/19/18 14:41) behavior changes/agitation Home Medications: HOME MEDICATIONS Donepezil HCl [Aricept] 10 mg PO HS 03/04/16 [Last Taken 03/03/16] Furosemide [Lasix] 20 mg PO DAILY 03/04/16 [Last Taken 03/04/16 06:00] Lisinopril [Zestril] 20 mg PO DAILY 03/04/16 [Last Taken 03/04/16 06:00] aspirin 81 mg tablet,delayed release 81 mg PO DAILY 11/09/17 [Last Taken Unknown] brimonidine-timolol 0.2 %-0.5 % eye drops 1 drp OP BID 11/09/17 [Last Taken Unknown] budesonide 0.5 mg/2 mL suspension for nebulization 1 ml IH BID PRN 11/09/17 [Last Taken Unknown] cholecalciferol (vitamin D3) 2,000 unit capsule 2,000 unit PO DAILY 11/09/17 [Last Taken Unknown] citalopram 20 mg tablet 40 mg PO DAILY tab 11/09/17 [Last Taken Unknown] diphenhydramine-zinc acetate 2 %-0.1 % topical spray 1 spray TP QID PRN 11/09/17 [Last Taken Unknown] hydrocodone 2.5 mg-acetaminophen 325 mg tablet 0.5 - 1 tab PO Q4H PRN tab 11/09/17 [Last Taken Unknown] hydrocortisone 1 % topical cream 1 applic TP QID PRN 11/09/17 [Last Taken Unknown] lorazepam 0.5 mg tablet 0.5 mg PO TID PRN 11/09/17 [Last Taken Unknown] menthol 4 % topical gel 4 % TP QID PRN ml 11/09/17 [Last Taken Unknown] multivitamin tablet 1 tab PO DAILY 11/09/17 [Last Taken Unknown] nystatin 100,000 unit/gram topical powder 1 applic TP BID PRN 11/09/17 [Last Taken Unknown] rivaroxaban 20 mg tablet 20 mg PO DAILY 11/09/17 [Last Taken Unknown] vit C-vit W-xounil-jqhu ox-lutein 226 mg-200 unit-5 mg-0.8 mg capsule 1 cap PO BID cap 11/09/17 [Last Taken Unknown] acetaminophen 325 mg tablet 650 mg PO Q6H PRN tab 01/09/18 [Last Taken Unknown] glucosamine-chondroitin 250 mg-200 mg tablet 1 tab PO DAILY tab 01/09/18 [Last Taken Unknown] albuterol sulfate 2.5 mg/3 mL (0.083 %) solution for nebulization 2.5 mg IH QID PRN #90 ml 03/11/18 [Last Taken Unknown] glucosamine ZDg-V3-Szswmozto latoya 1,500 mg-400 unit-100 mg tablet 1 tab PO DAILY 03/11/18 [Last Taken Unknown] ciprofloxacin 500 mg tablet 500 mg PO BID #6 tab 03/12/18 [Last Taken Unknown] HYDROcodone/ACETAMINOPHEN [Hydrocodon-Acetaminophen 5-325] 0.5 tab PO BID 03/19/18 [Last Taken Unknown] LORazepam [Ativan] 0.5 mg PO TUFR 03/19/18 [Last Taken Unknown] Narrative: Patient cannot provide any history d/t her dementia. She was noted to have 2 black stools at the [facility] and was sent to the ED. No apparent vomiting. No other history is available from the patien at this time, when I ask her if she is having pain she denies this Timing: unsure Quality/Severity: Present: other - denies pain a t this time Nausea/Vomiting: Present: other - black Associated Symptoms: Reports: black stools Prior Treament: Denies: recently seen Review of Systems - Narrative Narrative: unable to obtain due to dementia Medical History (Last Reviewed 03/19/18 @ 16:15 by Simone Booth MD) Congestive heart failure (CHF) (Chronic) Dementia (Chronic) Depression (Chronic) Hypertension (Chronic) Hyperkalemia (Chronic) A-fib (Chronic) Seizure (Chronic) Anxiety Onset Date: ~07/17/16 Atrial fibrillation Onset Date: Unknown CHF (congestive heart failure) Onset Date: ~06/15/14 CKD (chronic kidney disease) Onset Date: Unknown Dementia Onset Date: ~08/18/14 Essential hypertension Onset Date: ~07/17/16 Forgetfulness Onset Date: ~11/26/13 possible early dementia Glaucoma Onset Date: ~07/17/16 Hyperlipidemia Onset Date: Unknown Hypertension Onset Date: Unknown Major depression Onset Date: Unknown Osteoarthrosis Onset Date: Unknown Polyosteoarthritis Onset Date: Unknown Primary osteoarthritis involving multiple joints Onset Date: ~07/17/16 Seizure disorder Onset Date: ~11/29/16 Questionable history of seizure 10 years ago. It was discontinued at her first visit with me in June 2016 and there has been no report of seizures since that time. Continue off kepra Systolic and diastolic CHF, chronic Onset Date: ~07/17/16 Surgical History: Surgical History (Last Reviewed 03/19/18 @ 16:15 by Simone Booth MD) Cholecystectomy planned Onset Date: ~1994 Family History: Family History (Last Reviewed 03/19/18 @ 16:15 by Simone Booth MD) Brother CAD (coronary artery disease) Sister Pancreatic malignant neoplasm Social History: Preferred Language Greenlandic Do you have any rastafari or No cultural preference? Smoking Status Former smoker Have you smoked in the past 12 No months Do you dip or chew tobacco No Abuse History No History of abuse Psych History Hx of Depression Alcohol Use none Drug Use none (Last Reviewed 03/11/18 @ 12:45 by CHUNG Brown) No Social History Section defined Physical Exam - Physical Exam General Appearance: Present: alert, no apparent distress Head Exam: Present: normal inspection, no evidence of injury Eye Exam: Normal inspection: bilateral Ears, Nose, Throat: Present: normal ENT inspection Neck: Present: normal inspection Respiratory: Present: no respiratory distress, normal breath sounds, no accessory muscle use, lungs clear Cardiovascular/Chest: Present: regular rate, rhythm Gastrointestinal/Abdominal: Present: normal bowel sounds, nondistended, soft, other - mild left low quadrant abdominal pain Back Exam: Absent: CVA tenderness (R), CVA tenderness (L) Extremity Exam: Present: other - no deformity Neurological Exam: Present: alert, other - dementia. No clear acute focal motor or sensory deficits. Skin Exam: Present: warm/dry Progress - Results and Orders Patient's Lab Results:: I have reviewed the patient's lab results. - Vital Signs Patient's Vital Signs:: I have reviewed the patient's vital signs. Vital Signs: Vital Signs 03/19/18 14:38 Temperature 36.6 C Pulse Rate 79 Respiratory Rate 20 Blood Pressure 73/39 L - Progress/Reassessment Chief Complaint: Rectal Bleeding Progress Note-Subjective: 03/19/18 16:18 IV fluids and IV protonix given. 1st Unit of blood ordered. D/W Dr Palm then Dr Lloyd who will admit the patient. I discussed the case with family. Patient is a DNR. I discussed options, they did not feel that she would want aggressive interventions and did not think that she would want to go through those procedusres. I disucssed IV fluids and blood and they were comfortable trying this approach given her age/DNR status and overall poor health. 03/19/18 16:30 Departure Clinical Impression: Anemia, GI bleeding - Departure Disposition: Still a patient Condition: Poor
--- NOTE | 2018-03-19 18:10 | HP ---
Chief Complaint - Chief Complaint Date of Service: 03/19/18 Time of Service: 17:56 Chief Complaint: black stools History of Present Illness: Tonya Gomez, is a 87-year-old white female, resident of the [facility], with past medical history of dementia, chronic atrial fibrillation, hypertension, chronic renal failure, seizure disorder, who was admitted on 03/19/2018 because of black stools. I am not able to get any history of present illness from Tonya due to her dementia. From the emergency room the patient was brought to our hospital from the [facility] because she had 2 black stools. The patient denies any abdominal pain, nausea, vomiting. The fomites with her and they have decided to not be aggressive with her mother. They just want to give her blood transfusion and IV fluids and if she continues to deteriorate they are wanting only comfort measures. They do not want any endoscopic procedures done on her mother. She is a DNR. Medical History (Last Reviewed 03/19/18 @ 16:15 by Simone Booth MD) Congestive heart failure (CHF) (Chronic) Dementia (Chronic) Depression (Chronic) Hypertension (Chronic) Hyperkalemia (Chronic) A-fib (Chronic) Seizure (Chronic) Anxiety Onset Date: ~07/17/16 Atrial fibrillation Onset Date: Unknown CHF (congestive heart failure) Onset Date: ~06/15/14 CKD (chronic kidney disease) Onset Date: Unknown Dementia Onset Date: ~08/18/14 Essential hypertension Onset Date: ~07/17/16 Forgetfulness Onset Date: ~11/26/13 possible early dementia Glaucoma Onset Date: ~07/17/16 Hyperlipidemia Onset Date: Unknown Hypertension Onset Date: Unknown Major depression Onset Date: Unknown Osteoarthrosis Onset Date: Unknown Polyosteoarthritis Onset Date: Unknown Primary osteoarthritis involving multiple joints Onset Date: ~07/17/16 Seizure disorder Onset Date: ~11/29/16 Questionable history of seizure 10 years ago. It was discontinued at her first visit with me in June 2016 and there has been no report of seizures since that time. Continue off kepra Systolic and diastolic CHF, chronic Onset Date: ~07/17/16 Surgical History: Surgical History (Last Reviewed 03/19/18 @ 16:15 by Simone Booth MD) Cholecystectomy planned Onset Date: ~1994 Family History: Family History (Last Reviewed 03/19/18 @ 16:15 by Simone Booth MD) Brother CAD (coronary artery disease) Sister Pancreatic malignant neoplasm Social History: Preferred Language Yi Do you have any scientology or No cultural preference? Smoking Status Former smoker Have you smoked in the past 12 No months Do you dip or chew tobacco No Abuse History No History of abuse Psych History Hx of Depression Alcohol Use none Drug Use none (Last Reviewed 03/11/18 @ 12:45 by CHUNG Brown) No Social History Section defined Review Of Systems (GEN) - Review of Systems Abdominal: Present: Melena - per [facility]. Absent: Nausea, Vomiting, Abdominal Pain Additional Comments: unreliable due to her dementia Immunizations: IMMUNIZATION HX Immunizations Up to Date Yes History of Influenza Vaccine Yes Hx Pneumococcal Vaccination Yes Allergies/Adverse Reactions: Allergies Allergy/AdvReac Type Severity Reaction Status Date / Time Sulfa (Sulfonamide Allergy RASH Verified 03/19/18 14:41 Antibiotics) tramadol AdvReac Unknown Verified 03/19/18 14:41 Exam - Exam Vital Signs: Vital Signs - Last Taken Temp 36.9 C 03/19/18 17:53 Pulse 102 H 03/19/18 17:53 Resp 17 03/19/18 17:53 BP 98/54 03/19/18 17:53 Pulse Ox 100 03/19/18 17:17 Constitutional: Present: Alert - AAO x 1, Cooperative, Elderly ENT Exam: Present: hearing grossly normal Eye Exam: bilateral eye: normal inspection, PERRL, EOMI Neck: Present: supple Respiratory: Present: decreased breath sounds, No rales, No wheezing Cardiovascular/Chest: Present: no JVD, no murmur, irregularly irregular Abdomen: Present: soft, tender, hypoactive Extremity: Present: no calf tenderness, pedal edema Diagnostic Studies: Abnormal Lab Results 03/19/18 03/19/18 03/19/18 Range/Units 15:00 15:00 15:00 RBC 2.34 L (4.2-5.4) M/mm3 Hgb 6.9 L* (12.5-16.0) gm/dL Hct 22.5 L* (37.0-47.0) % MCHC 30.7 L (32-36) g/dl Lymphocytes % 16.4 L (20-51) % Lymphocytes # 1.12 L (1.5-3.5) k/mm3 PT 12.1 H (9.0-11.0) Seconds INR (Anticoag Therapy) 1.21 H (0.90-1.10) INR Sodium 144 H (132-142) mmol/L Plasma Sodium 144 H (130-142) mmol/L BUN 30 H (3-23) mg/dL Est GFR (Non-Af Amer) 41 L (60-130) mL/min BUN/Creatinine Ratio 23.1 H (9.0-21.6) ALT 13 L (19-67) U/L Total Protein 5.9 L (6.2-8.2) gm/dL Albumin 2.7 L (3.4-5.0) gm/dl Crossmatch 03/19/18 Range/Units 15:00 RBC (4.2-5.4) M/mm3 Hgb (12.5-16.0) gm/dL Hct (37.0-47.0) % MCHC (32-36) g/dl Lymphocytes % (20-51) % Lymphocytes # (1.5-3.5) k/mm3 PT (9.0-11.0) Seconds INR (Anticoag Therapy) (0.90-1.10) INR Sodium (132-142) mmol/L Plasma Sodium (130-142) mmol/L BUN (3-23) mg/dL Est GFR (Non-Af Amer) (60-130) mL/min BUN/Creatinine Ratio (9.0-21.6) ALT (19-67) U/L Total Protein (6.2-8.2) gm/dL Albumin (3.4-5.0) gm/dl Crossmatch See Detail Laboratory Results WBC 6.8 K/mm3 (4.0-10.5) 03/19/18 15:00 RBC 2.34 M/mm3 (4.2-5.4) L 03/19/18 15:00 Hgb 6.9 gm/dL (12.5-16.0) L* 03/19/18 15:00 Hct 22.5 % (37.0-47.0) L* 03/19/18 15:00 MCV 96.2 fl (78-100) 03/19/18 15:00 MCH 29.5 pg (27-31) 03/19/18 15:00 MCHC 30.7 g/dl (32-36) L 03/19/18 15:00 RDW 14.0 % (11.5-14.0) 03/19/18 15:00 Plt Count 216 K/mm3 (150-450) 03/19/18 15:00 MPV 9.8 fl (8-12.5) 03/19/18 15:00 Immature Gran % (Auto) 0.30 % (0.001-0.429) 03/19/18 15:00 Immature Gran # (Auto) 0.02 K/mm3 (0.000-0.0310) 03/19/18 15:00 Neutrophils % 73.0 % (42-75.0) 03/19/18 15:00 Lymphocytes % 16.4 % (20-51) L 03/19/18 15:00 Monocytes % 7.9 % (0.0-9) 03/19/18 15:00 Eosinophils % 2.0 % (0.0-3.0) 03/19/18 15:00 Basophils % 0.4 % (0.0-1.0) 03/19/18 15:00 Nucleated RBC % 0.0 k/mm3 (0-1) 03/19/18 15:00 Neutrophils # 5.0 K/mm3 (1.3-6.0) 03/19/18 15:00 Lymphocytes # 1.12 k/mm3 (1.5-3.5) L 03/19/18 15:00 Monocytes # 0.5 k/mm3 (0.0-1.0) 03/19/18 15:00 Eosinophils # 0.1 k/mm3 (0.0-0.7) 03/19/18 15:00 Absolute Basophils 0.0 k/mm3 (0.0-0.1) 03/19/18 15:00 PT 12.1 Seconds (9.0-11.0) H 03/19/18 15:00 INR (Anticoag Therapy) 1.21 INR (0.90-1.10) H 03/19/18 15:00 PTT ([place]) 25.4 Seconds (24-32) 03/19/18 15:00 Sodium 144 mmol/L (132-142) H 03/19/18 15:00 Plasma Sodium 144 mmol/L (130-142) H 03/19/18 15:00 Potassium 4.4 mmol/L (3.4-4.6) 03/19/18 15:00 Chloride 106 mmol/L (97-106) 03/19/18 15:00 Carbon Dioxide 30.2 mmol/L (24-32.6) 03/19/18 15:00 Anion Gap 12.2 mmol/L (6.8-13.8) 03/19/18 15:00 BUN 30 mg/dL (3-23) H 03/19/18 15:00 Creatinine 1.30 mg/dL (0.4-1.4) 03/19/18 15:00 Est GFR (Non-Af Amer) 41 mL/min (60-130) L 03/19/18 15:00 BUN/Creatinine Ratio 23.1 (9.0-21.6) H 03/19/18 15:00 Random Glucose 105 mg/dL (70-110) 03/19/18 15:00 Calcium 8.4 mg/dL (7.9-10.9) 03/19/18 15:00 Calcium Adj for Albumin 9.1 mg/dL (8.4-10.2) 03/19/18 15:00 Total Bilirubin 0.2 mg/dL (0.0-1.1) 03/19/18 15:00 AST 18 U/L (0-48) 03/19/18 15:00 ALT 13 U/L (19-67) L 03/19/18 15:00 Alkaline Phosphatase 55 U/L (50-170) 03/19/18 15:00 Total Protein 5.9 gm/dL (6.2-8.2) L 03/19/18 15:00 Albumin 2.7 gm/dl (3.4-5.0) L 03/19/18 15:00 Blood Type O Positive 03/19/18 15:00 Antibody Screen Negative 03/19/18 15:00 Crossmatch See Detail 03/19/18 15:00 Assessment/Plan - Assessment/Plan (1) Hypotension Assessment: due to acute blood loss, continue with IVF abd BT Problem: Acute Qualifiers: Hypotension type: hypotension due to hypovolemia Qualified Code(s): I95.89 - Other hypotension; E86.1 - Hypovolemia (2) Anemia Assessment: acute blood loss anemia. will give 2 units of PRBC.if she continues to have GIB , will do comfort measures.discussed case with the family. they just want conservative management with their mother. no endoscopic porcedures or transfer to tertiary institution. Problem: Acute Qualifiers: Anemia type: iron deficiency (3) GI bleeding Assessment: UGIB more than LGIB. continue with IV protonix. will keep her NPO for now. Problem: Acute Qualifiers: GI bleed type/associated pathology: gastroduodenitis Qualified Code(s): K29.91 - Gastroduodenitis, unspecified, with bleeding (4) Dementia Problem: Chronic Qualifiers: Dementia type: Alzheimer's disease (5) Depression Problem: Chronic Qualifiers: (6) Hypertension Problem: Chronic Qualifiers: Hypertension type: essential hypertension (7) A-fib Problem: Chronic Qualifiers: Atrial fibrillation type: chronic Qualified Code(s): I48.2 - Chronic atrial fibrillation (8) Seizure Problem: Chronic
[2018-03-19] MEDS ORDERED: PANTOPRAZOLE SODIUM 40 MG in NORMAL SALINE 100 ML IV SCH (19:00)
[2018-03-20 08:30] LABS: Hematocrit 30.7 % (37.0-47.0); Hemoglobin 9.9 gm/dL (12.5-16.0); Mean Cell Volume 92.7 fl (78-100); Mean Corpuscular Hemoglobin 29.9 pg (27-31); Mean Corpuscular Hgb Conc 32.2 g/dl (32-36); Mean Platelet Volume 10.1 fl (8-12.5); Neutrophil # 3.8 K/mm3 (1.3-6.0); Neutrophil % 61.4 % (42-75.0); Platelet Count 176 K/mm3 (150-450); Red Blood Count 3.31 M/mm3 (4.2-5.4); Red Cell Distribution Width 14.6 % (11.5-14.0); White Blood Count 6.1 K/mm3 (4.0-10.5)
--- NOTE | 2018-03-20 08:34 | PN ---
Progess Note - Interim Date: 03/20/18 Time: 08:32 Narrative: 03/20/18 08:32 patient is status quo. BP in he upper 90's and low 100's. awaiting H/H. possible discharge today.
[2018-03-20 08:57] LABS: BUN/Creatinine Ratio 23.4 (9.0-21.6); Blood Urea Nitrogen 25 mg/dL (3-23); Calcium * 8.3 mg/dL (7.9-10.9); Carbon Dioxide 28.1 mmol/L (24-32.6); Chloride 111 mmol/L (97-106); Glucose * 86 mg/dL (70-110); Potassium 4.1 mmol/L (3.4-4.6); Sodium 144 mmol/L (132-142)
--- NOTE | 2018-03-20 09:07 | DS ---
(1) Hypotension Problem: Resolved Qualifiers: Hypotension type: hypotension due to hypovolemia Qualified Code(s): I95.89 - Other hypotension; E86.1 - Hypovolemia (2) Anemia Diagnosis(s): Hb up to 9.9 from 6.9. Problem: Acute Qualifiers: Anemia type: iron deficiency (3) GI bleeding Problem: Acute Qualifiers: GI bleed type/associated pathology: gastroduodenitis Qualified Code(s): K29.91 - Gastroduodenitis, unspecified, with bleeding (4) Dementia Diagnosis(s): no further gross bleeding Problem: Chronic Qualifiers: Dementia type: Alzheimer's disease (5) Depression Problem: Chronic Qualifiers: (6) Hypertension Problem: Chronic Qualifiers: Hypertension type: essential hypertension Qualified Code(s): I10 - Essential (primary) hypertension (7) A-fib Problem: Chronic Qualifiers: Atrial fibrillation type: chronic Qualified Code(s): I48.2 - Chronic atrial fibrillation (8) Seizure Problem: Chronic Description of Stay: Tonya Gomez, is a 87-year-old white female, resident of the [place], with past medical history of dementia, chronic atrial fibrillation, hypertension, chronic renal failure, seizure disorder, who was admitted on 03/19/2018 because of black stools. I am not able to get any history of present illness from Tonya due to her dementia. From the emergency room the patient was brought to our hospital from the [facility] because she had 2 black stools. Her Hb was down to 6.9 and her BP was in the 80's. The patient denies any abdominal pain, nausea, vomiting. The family was with her and they have decided to not be aggressive with their mother. They just want to give her blood transfusion and IV fluids and if she continued to deteriorate they are wanting only comfort measures. She received 2 units of PRBC and her Hb is up from 6.9 to 9.9. Her BP has been steady in the upper 90's and lower 100's. She has not had further bleed ing. She is table to be discharged today. Procedures Performed: none Results and Findings: Lab Pending Results 03/19/18 15:00: WBC 6.8, RBC 2.34 L, Hgb 6.9 L*, Hct 22.5 L*, MCV 96.2, MCH 29.5, MCHC 30.7 L, RDW 14.0, Plt Count 216, MPV 9.8, Immature Gran % (Auto) 0.30, Immature Gran # (Auto) 0.02, Neutrophils % 73.0, Lymphocytes % 16.4 L, Monocytes % 7.9, Eosinophils % 2.0, Basophils % 0.4, Nucleated RBC % 0.0, Neutrophils # 5.0, Lymphocytes # 1.12 L, Monocytes # 0.5, Eosinophils # 0.1, Absolute Basophils 0.0 03/19/18 15:00: PT 12.1 H, INR (Anticoag Therapy) 1.21 H, PTT ([place]) 25.4 03/19/18 15:00: Sodium 144 H, Plasma Sodium 144 H, Potassium 4.4, Chloride 106, Carbon Dioxide 30.2, Anion Gap 12.2, BUN 30 H, Creatinine 1.30, Est GFR (Non-Af Amer) 41 L, BUN/Creatinine Ratio 23.1 H, Random Glucose 105, Calcium 8.4, Calcium Adj for Albumin 9.1, Total Bilirubin 0.2, AST 18, ALT 13 L, Alkaline Phosphatase 55, Total Protein 5.9 L, Albumin 2.7 L 03/19/18 15:00: Blood Type O Positive, Antibody Screen Negative, Crossmatch See Detail 03/20/18 07:45: WBC 6.1, RBC 3.31 L, Hgb 9.9 L, Hct 30.7 L, MCV 92.7, MCH 29.9, MCHC 32.2, RDW 14.6 H, Plt Count 176, MPV 10.1, Immature Gran % (Auto) 0.20, Immature Gran # (Auto) 0.01, Neutrophils % 61.4, Lymphocytes % 23.0, Monocytes % 10.0 H, Eosinophils % 4.4 H, Basophils % 1.0, Nucleated RBC % 0.0, Neutrophils # 3.8, Lymphocytes # 1.41 L, Monocytes # 0.6, Eosinophils # 0.3, Absolute Basophils 0.1 03/20/18 07:45: Sodium 144 H, Plasma Sodium 144 H, Potassium 4.1, Chloride 111 H, Carbon Dioxide 28.1, Anion Gap 9.0, BUN 25 H, Creatinine 1.07, Est GFR (Non- Af Amer) 51 L D, BUN/Creatinine Ratio 23.4 H, Random Glucose 86, Calcium 8.3 Discharge Location: [facility] Disposition: Intermediate Care Facility ICF Condition: Poor Level of Care: ICF Discharge Activity: Activity as tolerated Discharge Diet: General/regular food Referrals: Jenn Palm DO [Primary Care Provider] - Additional Patient Instructions (free text): Dr. Palm will follow up patient in the [place]. Prescriptions (Any new or edited meds): Ferrous Sulfate 325 mg PO BID #60 tablet. Pantoprazole Sodium [Protonix] 40 mg PO DAILY #30 tablet. Complete Home Medications List: Complete Home Medication List: Acetaminophen [Tylenol] 650 mg PO Q6H PRN 03/19/18 Albuterol Sulfate [Albuterol Sulfate 2.5 MG/0.5ML] 1 vial IH QID PRN 03/19/18 Brimonidine Tartrate/Timolol [Combigan 0.2%-0.5% Eye Drops] 1 drop OP BID 03/19/18 Cholecalciferol (Vitamin D3) [Vitamin D3] 2,000 unit PO DAILY 03/19/18 Citalopram Hydrobromide [Citalopram HBr] 40 mg PO DAILY 03/19/18 Donepezil HCl 10 mg PO DAILY 03/19/18 Furosemide 20 mg PO DAILY 03/19/18 Glucosamine/D3/Boswellia Katie [Osteo Bi-Flex Caplet] 1 each PO DAILY 03/19/18 HYDROcodone/ACETAMINOPHEN [Hydrocodone-Acetamin 5-325 mg] 1 each PO Q4H 03/19/18 HYDROcodone/ACETAMINOPHEN [[place] 5-325] 0.5 tab PO BID 03/19/18 LORazepam [Ativan] 0.5 mg PO TID PRN 03/19/18 LORazepam [Ativan] 0.5 mg PO TUFR 03/19/18 Lisinopril 20 mg PO DAILY 03/19/18 Tab-A-Nohemi 1 tab PO DAILY 03/19/18 Vit A/Vit C/Vit E/Zinc/Copper [Preservision Areds Softgel] 1 each PO BID 03/19/18 Ferrous Sulfate 325 mg PO BID #60 tablet. 03/20/18 Pantoprazole Sodium [Protonix] 40 mg PO DAILY #30 tablet. 03/20/18
[2018-03-20 13:57] VITALS: BP 141/41
== END 2018-03-20 13:45 ==
LOC: MS 14:37 → ER 14:37 → MS 17:30
PROVIDERS: ADMIT Internal Medicine; ATTEND Internal Medicine
DX: K29.01 Acute gastritis with bleeding
CPT/HCPCS: 36415; 36430; 80048; 80053; 85025; 85610; 85730; 86850; 86900; 87081; 96365; 96375; 99285; G0378; P9016